=== PATIENT | female | born 1940 | race Caucasian/White ===

== ENCOUNTER → 2016-05-16 | Day surgery (SDC) | payer OTHER ==
[2016-05-08 17:03] VITALS: Ht 152.4 cm; Wt 52.3 kg
[~2016-05-16] VITALS: Ht 152.4 cm; Wt 52.3 kg
[~2016-05-16] MED LIST: 500ML BSS 0.3ML EPI 1:1000PF IRRIG ONE; ACET-1325; ACETAMINOPHEN 325 MG TAB PO PRN; AMVISC PLUS 0.8ML SYRINGE INT OCU ONE; ATROPINE SULFATE 0.1 MG/ML 5ML SYR IV PRN; AcetaZOLAMIDE 250 MG TAB PO SCH; BETAXOLOL HCL 0.25% OP SUSP PER DROP CHARGE OPR SCH; BRIMONIDINE TART 0.2% OP SOLN PER DROP CHARGE ONE; BSS FLUSH ONE; CALC600T9 PO; ENDOCOAT 0.85ML SYRINGE INT OCU ONE; EpHEDrine SULFATE INJ 50 MG/ML AMP IV PRN; EpINEphrine INJ 1MG/ML AMP 1 MG/ML AMP ONE; FENTANYL CITRATE INJ 50 MCG/1 ML 2 ML VIAL IV PRN; FLUMAZENIL 0.1 MG/1 ML 10 ML VIAL IV PRN; HYDROmorphone INJ 2 MG/ML SYR/VIAL IV PRN; LABETALOL HCL IV 5 MG/ML 20ML IV PRN; LACTATED RINGER'S 1000ML 500 ML IV SCH; LIDOCAINE 4% OP SOLN DROP CHARGE ONE; LIDOCAINE 4% OP SOLN DROP CHARGE OPR SCH; LIDOCAINE HCL 1% MPF 2 ML VIAL ONE; MEPERIDINE HCL 25 MG/ML CARP IV PRN; MIDAZOLAM HCL 1 MG/ML 2ML VIAL ONE; MIX: 4ML BSS 1ML EPI 1:1000 PF INSTIL ONE; MOXIFLOXACIN OPH SOLN PER DROP CHARGE ONE; NALOXONE HCL 0.4 MG/1 ML VIAL/CARP IV PRN; OCUCOAT 1 ML SOLN IO ONE; OFLO0.3S OP; ONDANSETRON INJ 2 MG/ML 2 ML VIAL IV PRN; PHENYLEPHRINE 100MCG/ML 5ML SYR IV PRN; POVIDONE-IODINE OP SOLN 30 ML BTL ONE; PRED1SUS3 OPL; PROPARACAINE 0.5% OP SOLN PER DROP CHARGE OPR SCH; TOBRAMYCIN/DEXAMETHASONE OPH OINT PER APPLN CHARGE ONE
--- NOTE | 2016-05-16 07:56 | History & Physical Bridge - [place] ---
H&P Re-Evaluation Bridge Note: I have examined the patient, reviewed the History & Physical and in the interval since the performance of the History & Physical I have noted the following changes of clinical significance: No changes noted
[2016-05-16] MEDS: PHENYLEPHRINE HCL 2.5% OP SOLN PER DROP CHARGE OPR SCH ×2 (08:04→08:12)
[2016-05-16] MEDS: TROPICAMIDE 1% OP SOLN PER DROP CHARGE OPR SCH ×2 (08:05→08:13)
[2016-05-16] MEDS: CYCLOPENTOLATE HCL 1% OP SOLN PER DROP CHARGE OPR SCH ×2 (08:06→08:14)
[2016-05-16] MEDS: MOXIFLOXACIN OPH SOLN PER DROP CHARGE OPR SCH ×2 (08:07→08:20)
--- NOTE | 2016-05-16 09:01 | Discharge Instructions-SurgCtr ---
Discharge Instructions Visit Reason for Visit: Cataract Right Eye Discharge Goals Goal(s): Improve function Activity Recommendations Lifting Limitations: no more than 10 pounds Exercise/Sports Limitations: gradually increase as tolerated May Resume Sexual Activity: when tolerated Shower/Bathe: tomorrow Driving or Machine Use: resume 1 day after discharge Anesthesia . Post Anesthesia Instructions: If you have had General Anesthesia or IV Sedation: * Do not drive today. * Resume driving when surgeon permits. * Do not make important decisions or sign legal documents today. * Call surgeon for: 1. Temperature elevations greater than 101 degrees F. 2. Uncontrollable pain. 3. Excessive bleeding. 4. Persistent nausea and vomiting. 5. Medication intolerance (nausea, vomiting or rash). * For nausea and vomiting use only clear liquids such as: tea, soda, bouillon until nausea subsides, then gradually increase diet as tolerated. * If you have any concerns or questions, call your surgeon's office. If physician is unavailable and it is an emergency, call 911 or go to the nearest emergency room. . Instructions / Follow-Up Instructions / Follow-Up ACTIVITY RECOMMENDATIONS: * Light activities. * Mild irritation and blurred vision are common for the first few days. * You may walk outside, read, watch television. * Redness around the white part of the eye is common. MEDICATIONS: Resume previous medications unless instructed otherwise by your surgeon. * Take white Diamox (Acetazolamide) tablet at 1 pm today. Start all eye drops at 1 pm today: * Eye drops (today and tomorrow): Prednisone - one drop in operative eye every 3 hours while awake Ofloxacin - one drop in operative eye every 3 hours while awake SPECIAL CARE INSTRUCTIONS: * Tape plastic shield over eye to sleep at night. Call your doctor at with any concerns or problems. FOLLOW UP VISIT: Follow-up with Dr Rice at [facility] as scheduled. Medical Emergencies . Who to Call and When: Medical Emergencies: If at any time you feel your situation is an emergency, please call 911 immediately. . Non-Emergent Contact . . "Provider Documentation" section prepared by Fransico Rice.
--- NOTE | 2016-05-16 09:18 | [facility] Post Operative Brief Note ---
Immediate Operative Summary Operative Date May 16, 2016. Pre-Operative Diagnosis Cataract Right Eye Post-Operative Diagnosis Same Procedure(s) Performed Right Cataract Phacoemulsification With Intraocular Lens Implant Surgeon Dr. Rice Carpet Jack Surgeon(s) None Estimated Blood Loss None Findings Nuclear cataract right eye Fluids (cc crystalloids) 300 ml Specimens None Drains none Anesthesia L/S Complication(s) None Disposition Recovery Room / PACU
[2016-05-16 09:27] VITALS: TEMP 36.8
--- NOTE | 2016-05-16 09:29 | OPERATIVE REPORT ---
DATE OF OPERATION: 05/16/2016 PREOPERATIVE DIAGNOSIS: Senile nuclear cataract, right eye. POSTOPERATIVE DIAGNOSIS: Senile nuclear cataract, right eye. PROCEDURE: Phacoemulsification of right cataract with posterior chamber lens implant, type Bausch \T\ Lomb, model MX60, power +24.0 Diopters. ANESTHESIA: Local standby. SURGEON: Dr. Rice. COMPLICATIONS: None. OPERATING TIME: 10 minutes. OPERATION AND FINDINGS: PROCEDURE: The right pupil was dilated. The anesthetic was administered using a topical technique. The right eye was prepped and draped. A speculum was placed. A paracentesis was placed. The chamber was filled with Amvisc Plus and EndoCoat. Epinephrine solution was used. A clear corneal incision was formed. A capsulorrhexis was performed. The nucleus was hydrodissected. The lens was removed with phacoemulsification. Time was 3.08 seconds. The aspiration unit was used to remove the cortex. The capsule was filled with Amvisc Plus. The lens implant was folded and placed into the capsule. The incision was hydrated. The Amvisc was aspirated. The wound was secure. The chamber was deep. The pupil was round. Brimonidine and TobraDex ointment and Vigamox solution were placed. The speculum was removed. DISPOSITION: The patient was returned to the recovery room in stable condition. I attest to the content of the Intraoperative Record and any orders documented therein. Any exceptions are noted below. I attest to the content of the Intraoperative Record and any orders documented therein. Any exceptions are noted below. IMELDA
--- NOTE | 2016-05-16 09:37 | Anesthesia Progress Nt - [facility] ---
Anesthesia Post Op Note Date & Time May 16, 2016 at 09:36 Vital Signs Pain Intensity: 3 Vital Signs Past 12 Hours Date Time Temp Pulse Resp B/P Pulse Ox O2 Delivery O2 Flow Rate FiO2 05/16/16 09:27 36.8 69 18 131/84 98 Room Air 05/16/16 07:58 36.6 86 16 145/83 95 Room Air Notes Mental Status: alert / awake / arousable, participated in evaluation Pt Amnestic to Procedure: Yes Nausea / Vomiting: adequately controlled Pain: adequately controlled Airway Patency, RR, SpO2: stable & adequate BP & HR: stable & adequate Hydration State: stable & adequate Anesthetic Complications: no major complications apparent
[2016-05-16 09:44] VITALS: BP 139/73; PULSE 87; O2SAT 96
== END | disposition home or self-care (01) ==
LOC: X.SURG 07:34
PROVIDERS: ATTEND Specialist
DX: H25.11 Age-related nuclear cataract, right eye (principal)

== ENCOUNTER 2017-05-17 08:40 | Inpatient (IN) | payer OTHER ==
[2017-05-08 12:59] VITALS: BMI 24.0
--- NOTE | 2017-05-08 13:23 | PAT Medication Instructions ---
Service Date May 08, 2017. Current Home Medication List Calcium Carbonate-Vitamin D (Calcium + D), 1 TAB PO BID Diclofenac (Voltaren), 75 MG PO BID Fish Oil ([place]-3), 1 CAP PO QPM Nutritional Supplements (Boost), 1 DOSE PO QDL Medication Instructions For Your Scheduled Surgery - Check with surgeon for instructions: Diclofenac (Voltaren), 75 MG PO BID - Hold the following medications starting 05/08/16: Fish Oil ([place]-3), 1 CAP PO QPM - Hold the following medications the morning of surgery: Nutritional Supplements (Boost), 1 DOSE PO QDL Calcium Carbonate-Vitamin D (Calcium + D), 1 TAB PO BID - Take the following medications as scheduled the night before surgery: Calcium Carbonate-Vitamin D (Calcium + D), 1 TAB PO BID If you have any questions please call us at [phone] or [phone] or [phone]
--- NOTE | 2017-05-08 14:15 | DIAGNOSTIC IMAGING REPORT ---
CHEST 2 VIEWS ROUTINE CLINICAL HISTORY: PAT preoperative evaluation COMPARISON STUDY: 11/24/2014 FINDINGS: Mild emphysematous change. Slight chronic interstitial prominence. Several small scattered calcified granulomas. No focal infiltrate. IMPRESSION: Chronic change. No acute process. The above report was generated using voice recognition software. It may contain grammatical, syntax or spelling errors. Electronically signed by: Ricky Ang M.D. 05/08/2017 2:14 PM Dictated Date/Time: 05/08/2017 2:13 PM
[2017-05-08 15:29] LABS: BASO % 0.5 %; BASO ABS # 0.04 K/uL (0-0.2); EOS % 1.9 %; EOS ABS # 0.14 K/uL (0-0.5); HEMATOCRIT 39.2 % (37-47); HEMOGLOBIN 12.6 g/dL (12.0-16.0); IG# 0.01 K/uL (0.00-0.02); LYMPH % 32.4 %; LYMPH ABS # 2.44 K/uL (1.2-3.4); MEAN CELL VOLUME 96.8 fL (80-100); MEAN CORPUSCULAR HEMOGLOBIN 31.1 pg (25-34); MEAN CORPUSCULAR HGB CONC 32.1 g/dl (32-36); MEAN PLATELET VOLUME 9.4 fL (7.4-10.4); MONO % 7.3 %; MONO ABS # 0.55 K/uL (0.11-0.59); NEUT % 57.8 %; NEUT ABS # 4.35 K/uL (1.4-6.5); PLATELET COUNT 326 K/uL (130-400); RED CELL DISTRIBUTION WIDTH CV 13.8 % (11.5-14.5); RED CELL DISTRIBUTION WIDTH SD 49.2 fL (36.4-46.3); WHITE BLOOD COUNT 7.53 K/uL (4.8-10.8)
[2017-05-08 15:40] LABS: CALCIUM 9.1 mg/dl (8.5-10.1); CREATININE 0.8 mg/dl (0.60-1.20); POTASSIUM 3.8 mmol/L (3.5-5.1)
[2017-05-08 15:42] LABS: PTT PATIENT 25.7 SECONDS (21.0-31.0)
--- NOTE | 2017-05-16 08:09 | HISTORY & PHYSICAL EXAMINATION ---
DATE OF ADMISSION: 05/17/2017 CHIEF COMPLAINT: Rotator cuff arthropathy of the left shoulder. HISTORY OF PRESENT ILLNESS: Willow is a pleasant 76-year-old female who has been having a several month history of increasing left shoulder pain. X-rays and clinical examination have been diagnostic for rotator cuff arthropathy of the left shoulder. After failing extensive conservative treatment, she elected to proceed with a reverse left total shoulder arthroplasty. PAST MEDICAL HISTORY: Significant for osteoarthritis. PAST SURGICAL HISTORY: Significant for rotator cuff repair of the right shoulder in 2016 and a breast lumpectomy. ALLERGIES: None. MEDICATIONS: Include fish oil, calcium, and diclofenac as needed for pain. FAMILY HISTORY: Denies. SOCIAL HISTORY: She is a former smoker. She has about 1 drink per week. She denies any drug use. Her recently . REVIEW OF SYSTEMS: She complains of left shoulder pain. All other pertinent review of systems is negative. PHYSICAL EXAMINATION: GENERAL: She is awake, alert and oriented x3. She is in no apparent distress. She is very pleasant. HEENT: Pupils equal, round and reactive to light. Extraocular motions intact. Oral mucosa is pink and moist. HEART: Regular rate per radial pulse. LUNGS: Dulce Maria symmetrically bilaterally with no audible breath sounds. ABDOMEN: Soft, nontender, and nondistended. MUSCULOSKELETAL: On physical examination of the left shoulder, actively she has full range of motion. She has 3/5 muscle strength with full can testing and 3/5 muscle strength with external rotation. Negative belly press test. She has a lot of pain with range of motion of her shoulder and severe pain in the subacromial space. IMAGING DATA: X-rays of the left shoulder do show evidence of rotator cuff arthropathy with superior migration of the humeral head on the glenoid and joint space narrowing. IMPRESSION: Rotator cuff arthropathy of the left shoulder. PLAN: We will proceed with a reverse left total shoulder arthroplasty. Postoperatively, she will be placed in an arm sling and kept overnight for postoperative medical management.
[~2017-05-17] VITALS: Ht 149.9 cm; Wt 54.6 kg
[2017-05-17] VITALS (8 sets, daily range): BP systolic 113–172; BP diastolic 64–81; PULSE 67–100; TEMP 36.5–36.9; O2SAT 91–100; Ht 149.9 cm; Wt 54.6 kg
[~2017-05-17 08:40] MED LIST changes: -500ML BSS 0.3ML EPI 1:1000PF IRRIG ONE; -ACET-1325; -ACETAMINOPHEN 325 MG TAB PO PRN; +ACETAMINOPHEN 500 MG TAB PO SCH; -AMVISC PLUS 0.8ML SYRINGE INT OCU ONE; -ATROPINE SULFATE 0.1 MG/ML 5ML SYR IV PRN; -AcetaZOLAMIDE 250 MG TAB PO SCH; -BETAXOLOL HCL 0.25% OP SUSP PER DROP CHARGE OPR SCH; -BRIMONIDINE TART 0.2% OP SOLN PER DROP CHARGE ONE; -BSS FLUSH ONE; +CEFAZOLIN 2000MG IV PUSH 10 ML IV SCH; +DEXAMETHASONE SOD INJ 4 MG/ML VIAL ONE; +DICL-201 PO; -ENDOCOAT 0.85ML SYRINGE INT OCU ONE; -EpHEDrine SULFATE INJ 50 MG/ML AMP IV PRN; -EpINEphrine INJ 1MG/ML AMP 1 MG/ML AMP ONE; +FAMOTIDINE 20 MG TAB PO SCH; -FENTANYL CITRATE INJ 50 MCG/1 ML 2 ML VIAL IV PRN; -FLUMAZENIL 0.1 MG/1 ML 10 ML VIAL IV PRN; +GABAPENTIN 300 MG CAP PO SCH; -HYDROmorphone INJ 2 MG/ML SYR/VIAL IV PRN; -LABETALOL HCL IV 5 MG/ML 20ML IV PRN; +LACTATED RINGER'S 1000ML 1,000 ML IV SCH; -LACTATED RINGER'S 1000ML 500 ML IV SCH; +LACTATED RINGER'S 1000ML IV SCH; -LIDOCAINE 4% OP SOLN DROP CHARGE ONE; -LIDOCAINE 4% OP SOLN DROP CHARGE OPR SCH; -LIDOCAINE HCL 1% MPF 2 ML VIAL ONE; -MEPERIDINE HCL 25 MG/ML CARP IV PRN; -MIDAZOLAM HCL 1 MG/ML 2ML VIAL ONE; -MIX: 4ML BSS 1ML EPI 1:1000 PF INSTIL ONE; -MOXIFLOXACIN OPH SOLN PER DROP CHARGE ONE; -NALOXONE HCL 0.4 MG/1 ML VIAL/CARP IV PRN; +NUTR-7 PO; -OCUCOAT 1 ML SOLN IO ONE; -OFLO0.3S OP; +OMEG10007 PO; -ONDANSETRON INJ 2 MG/ML 2 ML VIAL IV PRN; -PHENYLEPHRINE 100MCG/ML 5ML SYR IV PRN; -POVIDONE-IODINE OP SOLN 30 ML BTL ONE; -PRED1SUS3 OPL; -PROPARACAINE 0.5% OP SOLN PER DROP CHARGE OPR SCH; +ROPIVACAINE 0.5% 5 MG/ML 30 ML VIAL ONE; +ROPIVACAINE 5MG/ML 30 ML 150 MG, BUPIVACAINE 0.5% MPF INJ 30 ML, EpINEphrine HCL INJ 0.... INFIL SCH; -TOBRAMYCIN/DEXAMETHASONE OPH OINT PER APPLN CHARGE ONE
[2017-05-17] MEDS ORDERED: DEXAMETHASONE SOD INJ 4 MG/ML VIAL ONE (08:58)
[2017-05-17] MEDS ORDERED: NEOSTIGMINE METHYLSULFATE 5 MG/5 ML SYR ONE (08:58)
[2017-05-17] MEDS ORDERED: ONDANSETRON INJ 2 MG/ML 2 ML VIAL ONE (08:58)
[2017-05-17] MEDS ORDERED: PROPOFOL IV EMULSION 10 MG/ML 20 ML VIAL IV ONE (08:58)
[2017-05-17] MEDS ORDERED: GLYCOPYRROLATE INJ 0.2 MG/ML VIAL ONE (08:58)
[2017-05-17] MEDS ORDERED: LIDOCAINE HCL 2% 2 ML VIAL (20MG/ML) ONE (08:58)
[2017-05-17] MEDS ORDERED: MIDAZOLAM HCL 1 MG/ML 2ML VIAL ONE (08:59)
[2017-05-17] MEDS ORDERED: FENTANYL CITRATE INJ 50 MCG/1 ML 2 ML VIAL ONE (08:59)
--- NOTE | 2017-05-17 09:48 | Anesthesiology Progress Note ---
Anesthesia Post Op Note Date & Time May 17, 2017 at 09:47 Vital Signs Pain Intensity: 7 Vital Signs Past 12 Hours Date Time Temp Pulse Resp B/P (MAP) Pulse Ox O2 Delivery O2 Flow Rate FiO2 05/17/17 09:10 36.6 76 18 158/81 95 Room Air Notes Mental Status: alert / awake / arousable, participated in evaluation Pt Amnestic to Procedure: Yes Nausea / Vomiting: adequately controlled Pain: adequately controlled Airway Patency, RR, SpO2: stable & adequate BP & HR: stable & adequate Hydration State: stable & adequate Anesthetic Complications: no major complications apparent This note was entered earlier in error. At this time (0926), pt is awake in PACU satisfactory condition for discharge.
[2017-05-17] MEDS ORDERED: ORTHO JOINT ANESTHETIC ONE (09:54)
[2017-05-17] MEDS ORDERED: BACITRACIN 50000 UNIT VIAL ONE (09:54)
[2017-05-17] MEDS ORDERED: EpHEDrine SULFATE INJ 50 MG/ML AMP IV PRN (10:00)
[2017-05-17] MEDS ORDERED: ATROPINE SULFATE 0.1 MG/ML 5ML SYR IV PRN (10:00)
[2017-05-17] MEDS ORDERED: ONDANSETRON INJ 2 MG/ML 2 ML VIAL IV PRN ×2 (10:00→12:15)
[2017-05-17] MEDS ORDERED: HYDROmorphone INJ 1 MG/ML SYR IV PRN (10:00)
[2017-05-17] MEDS ORDERED: LABETALOL HCL IV 5 MG/ML 20ML IV PRN (10:00)
[2017-05-17] MEDS ORDERED: FENTANYL CITRATE INJ 50 MCG/1 ML 2 ML VIAL IV PRN (10:00)
[2017-05-17] MEDS ORDERED: MEPERIDINE HCL 25 MG/ML CARP IV PRN (10:00)
[2017-05-17] MEDS: TRANEXAMIC ACID INJ 1,000 MG in SYRINGE 0 ML IV SCH ×2 (10:03→15:13)
[2017-05-17] MEDS ORDERED: ROCURONIUM BROMIDE 10 MG/ML 5 ML VIAL IV ONE (11:05)
[2017-05-17] MEDS ORDERED: PHENYLEPHRINE HCL INJ 10 MG/ML VIAL ONE (11:53)
--- NOTE | 2017-05-17 12:04 | [facility] Post Operative Brief Note ---
Immediate Operative Summary Operative Date May 17, 2017. Pre-Operative Diagnosis Rotator Cuff Arthropathy of the Left Shoulder Post-Operative Diagnosis Rotator Cuff Arthropathy of the Left Shoulder Procedure(s) Performed Reverse Left Total Shoulder Arthroplasty Surgeon Dr. Wil Drummond [facility] Surgeon(s) Delvis Lu PA-C Estimated Blood Loss 200ml Findings Consistent with Post-Op Diagnosis Specimens A.) Left Humeral Head Anesthesia Type General Regional Complication(s) none Disposition Disposition: Recovery Room / PACU
[2017-05-17] MEDS ORDERED: NALOXONE HCL 0.4 MG/1 ML VIAL/CARP IV PRN (12:15)
[2017-05-17] MEDS ORDERED: METOCLOPRAMIDE HCL INJ 5 MG/ML 2 ML VIAL IV PRN (12:15)
[2017-05-17] MEDS ORDERED: MAGNESIUM HYDROXIDE SUSP 30 ML UDC PO PRN (12:15)
[2017-05-17] MEDS ORDERED: BISACODYL 10 MG SUPP PR PRN (12:15)
[2017-05-17] MEDS ORDERED: SOD PHOSPHATE/SOD BIPHOSPHATE ENEMA 132 ML BTL PR PRN (12:15)
[2017-05-17] MEDS ORDERED: MoRPHine SULFATE 2 MG/ML CARP IV PRN (12:15)
--- NOTE | 2017-05-17 12:45 | OPERATIVE REPORT ---
DATE OF OPERATION: 05/17/2017 PREOPERATIVE DIAGNOSIS: Rotator cuff arthropathy of the left shoulder. POSTOPERATIVE DIAGNOSIS: Same. PROCEDURE: Reverse left total shoulder arthroplasty. SURGEON: Dr. Wil Drummond. HOUSEKEEPER HOME: Delvis Lu PA-C, whose assistance was necessary for retraction and closure. ANESTHESIA: General with a left interscalene nerve block. COMPLICATIONS: None. CONDITION: Stable to PACU. INDICATIONS: Willow is a pleasant 76-year-old female who presented to my office with chronic pain and weakness of her left shoulder. X-rays and clinical examination were diagnostic for cuff arthropathy of the left shoulder. After failing conservative treatment, she elected to undergo a reverse left total shoulder arthroplasty. DESCRIPTION OF PROCEDURE: On 05/17/2017, she arrived at [facility] for the above procedure. She was seen in the preoperative holding area and the operative extremity was identified and signed. She was given a preoperative antibiotic and a left interscalene nerve block. She was taken back to the operating room, laid on the table in supine position and put under general anesthesia. She was then put into the beachchair position. The left shoulder was prepped and draped in sterile fashion. Time-out was done and the patient's operative extremity was properly identified. A deltopectoral approach was used. Dissection was taken down through the deltopectoral interval and the anterior shoulder was exposed. The long head of the biceps tendon was tenodesed to the upper border of the pec major. The subscapularis was tenotomized off the lesser tuberosity with a centimeter of cuff tissue remaining. The proximal humerus was then exposed. There was a tear of the entire supraspinatus and part of the infraspinatus. A canal finding reamer was sent down the center of the humeral canal. Sequential reaming was done up to a size 11 reamer. Off the final reamer, a proximal humeral resection guide was placed and the proximal humerus was resected at 135 degrees of inclination and 20 degrees of retroversion. The head was removed and the glenoid was exposed. Time was spent doing a complete circumferential capsular and labral release. A guide was placed in the center of the glenoid and a guide pin was placed at 10 degrees of inclination. A 25-mm mini base plate was then drilled. The final 25-mm mini baseplate was impacted into place. A long size 50 central screw was placed. I was able to get a good bite. Superior, inferior and anterior locking screws were then placed. A 36-mm eccentric glenosphere was then impacted into place. The proximal humerus was then exposed. Sequential broaching up to a size 11 broach was done. Off that broach, a standard humeral tray was trialed. The shoulder was reduced, brought through a full range of motion and felt to be stable. The trials were then removed. A final size 11 mini stem was then impacted into place. A standard humeral bearing was snapped onto the humeral tray and the ring lock mechanism was engaged. The humeral tray was impacted on the humeral stem and the shoulder was reduced. It was brought through a full range of motion and felt to be stable. The subscapularis was then tenodesed back to the lesser tuberosity with transosseous FiberWire sutures and [id number] sutures. The surrounding soft tissues were injected with 100 mL of an orthopedic pain control cocktail. The wound was then irrigated with 3 liters of normal saline solution with bacitracin. A drain was placed. The axillary nerve was palpated and intact. The skin was then closed with 2-0 Vicryl, 3-0 V-Loc suture and baudilio. She was then placed in a soft dressing and a regular arm sling. She was then extubated, transferred to a litter and taken to the postanesthesia care unit in stable condition. She tolerated the procedure well. IMPLANTS USED: I used a [employer] comprehensive reverse shoulder arthroplasty system with a size 11 mini stem and a size 25-mm mini baseplate with a 36-mm standard eccentric glenosphere and a standard humeral tray and bearing. No cement was used during the case. I attest to the content of the Intraoperative Record and any orders documented therein. Any exception s are noted below.
[2017-05-17] MEDS ORDERED: PNEUMOCOCCAL POLYSACCHARIDES 25 MCG/0.5 ML VIAL/SYR IM. ONE (15:15)
[2017-05-17] MEDS ORDERED: PNEUMOCOCCAL ADMINISTRATION CHARGE ONE (15:15)
--- NOTE | 2017-05-17 16:15 | DIAGNOSTIC IMAGING REPORT ---
L SHOULDER MIN 2 VIEWS ROUTINE HISTORY: 76 years-old Female Post shoulder surgery status post left shoulder arthroplasty. Degenerative joint disease. COMPARISON: Left shoulder radiographs 03/05/2017 TECHNIQUE: 2 views of the left shoulder FINDINGS: Postoperative changes compatible with reverse left shoulder total joint arthroplasty noted. Alignment is satisfactory. No periprosthetic fracture or retained foreign body identified. Chondrocalcinosis about the left shoulder redemonstrated. Moderate degenerative changes of the left AC joint with mild bone demineralization. Surgical drain is in place along with expected postsurgical swelling and deep tissue air. Surgical clips are again seen projecting along the left axillary region. IMPRESSION: Reverse left shoulder total joint arthroplasty with satisfactory alignment. The above report was generated using voice recognition software. It may contain grammatical, syntax or spelling errors. Electronically signed by: Robinson Jamil M.D. 05/17/2017 4:13 PM Dictated Date/Time: 05/17/2017 4:12 PM
[2017-05-17] MEDS: KETOROLAC TROMETHAMINE 15 MG/ML VIAL IV. SCH ×2 (16:32→22:08)
[2017-05-17] MEDS: POTASSIUM CHLORIDE INJ 10 MEQ in SODIUM CHLORIDE 0.9% 1000ML 1,000 ML IV SCH (16:34)
[2017-05-17] MEDS: ACETAMINOPHEN IV 1,000 MG in EMPTY BAG 0 ML IV SCH ×2 (16:34→23:20)
[2017-05-17] MEDS: CEFAZOLIN IV 1,000 MG in SYRINGE 0 ML IV SCH (18:26)
[2017-05-17] MEDS ORDERED: SENNA 8.6 MG TAB PO SCH (21:00)
[2017-05-17] MEDS: DOCUSATE SODIUM 100 MG CAP PO SCH (22:08)
[2017-05-18] MEDS: POTASSIUM CHLORIDE INJ 10 MEQ in SODIUM CHLORIDE 0.9% 1000ML 1,000 ML IV SCH (02:09)
[2017-05-18] MEDS: CEFAZOLIN IV 1,000 MG in SYRINGE 0 ML IV SCH (02:09)
[2017-05-18] MEDS: KETOROLAC TROMETHAMINE 15 MG/ML VIAL IV. SCH ×2 (03:43→10:31)
[2017-05-18 04:00] VITALS: BP 119/75; PULSE 65; TEMP 36.8; O2SAT 95
[2017-05-18] MEDS: OXYCODONE HCL IR 5 MG TAB (IMMEDIATE RELEASE) PO PRN ×3 (04:21→12:12)
[2017-05-18 06:12] LABS: HEMATOCRIT 32.8 % (37-47); HEMOGLOBIN 10.7 g/dL (12.0-16.0); MEAN CELL VOLUME 95.6 fL (80-100); MEAN CORPUSCULAR HEMOGLOBIN 31.2 pg (25-34); MEAN CORPUSCULAR HGB CONC 32.6 g/dl (32-36); MEAN PLATELET VOLUME 9.3 fL (7.4-10.4); PLATELET COUNT 273 K/uL (130-400); RED CELL DISTRIBUTION WIDTH CV 13.5 % (11.5-14.5); RED CELL DISTRIBUTION WIDTH SD 47.1 fL (36.4-46.3); WHITE BLOOD COUNT 11.15 K/uL (4.8-10.8)
[2017-05-18 06:44] LABS: CALCIUM 8.3 mg/dl (8.5-10.1); CREATININE 0.88 mg/dl (0.60-1.20); POTASSIUM 4.2 mmol/L (3.5-5.1)
[2017-05-18 07:40] VITALS: BP 124/68; PULSE 68; TEMP 36.7; O2SAT 94
[2017-05-18] MEDS: ACETAMINOPHEN IV 1,000 MG in EMPTY BAG 0 ML IV SCH (08:13)
[2017-05-18] MEDS ORDERED: RXC5 PO (08:42)
--- NOTE | 2017-05-18 08:43 | Discharge Instructions ---
Discharge Instructions Date of Service May 18, 2017. Admission Reason for Admission: Left Shoulder Full Thickness Rotator Cuff Tear Discharge Discharge Diagnosis / Problem: Left Reverse Total Shoulder Discharge Goals Goal(s): Decrease discomfort, Improve function Activity Recommendations Activity Limitations: as noted below . Instructions / Follow-Up Instructions / Follow-Up Activity and Therapy Recommendations: * Wear your sling for 3 weeks, unless otherwise instructed. You may remove your sling to shower and to dress, but otherwise, you should be in your sling at all times, including while sleeping * The shoulder replacement is very stable and you can use your hand while in the sling * Physical Therapy should start about 3-5 days from your day of surgery. Therapy will last about 8-12 weeks * You were shown a series of exercises in the hospital. Do these exercises daily including the exercises you were shown in physical therapy. Medications: * Narcotic You will likely be sent home from the hospital with a prescription for the narcotic pain medication that worked best throughout your stay. * Other medications may be prescribed for specific circumstances. If you have any questions, please call the office at . * Resume previous home medications unless otherwise instructed Showering: You may shower 5 days from the day of surgery. Let the soapy shower water run over the baudilio. Do not scrub or soak the incision. Things To Watch For: * Drainage from the incision site that occurs more than one week after your surgery. * Increased redness at the incision site. * Fever above 102 degrees Fahrenheit. * Unusual chest pain or shortness of breath. * Call [facility] at with any of the above problems Follow-Up Visit: Follow-up with Dr. Drummond 2-3 weeks after your day of surgery. An appointment was probably scheduled when you signed-up for surgery in the office. If you have any questions call Office Instructions: More detailed instructions as well as Frequently Asked Questions were provided in a folder by our office when you signed-up for surgery. Please review these instructions when you get home. If you have any further questions or concerns, please feel free to call the office at [phone] Current Hospital Diet Patient's current hospital diet: Regular Diet Discharge Diet Recommended Diet: Regular Diet Procedures Procedures Performed: Reverse Left Total Shoulder Arthroplasty Pending Studies Studies pending at discharge: no Medical Emergencies . Who to Call and When: Medical Emergencies: If at any time you feel your situation is an emergency, please call 911 immediately. . Non-Emergent Contact Non-Emergency issues call your: Surgeon Call Non-Emergent contact if: wound has increased drainage, wound has increased redness . "Provider Documentation" section prepared by Wil Drummond. . VTE Core Measure Inpt VTE Proph given/why not?: Treatment not indicated
[2017-05-18] MEDS ORDERED: MULTIVITAMIN TAB PO SCH (09:00)
--- NOTE | 2017-05-18 09:02 | PROGRESS NOTE ---
DATE: 05/18/2017 CHIEF COMPLAINT: Status post left reverse shoulder arthroplasty postop day #1. PROGRESS: Willow was seen and examined at bedside today. Overall, she is doing very well. She has a little soreness in her shoulder, but it is not too bad. She was able to get some sleep last night and has no complaints. PHYSICAL EXAMINATION: LEFT ARM: Her radial, median and ulnar nerves were checked and intact. Her hand is still a little bit numb as the block is wearing off. She is wearing her sling as instructed. The dressing is clean and dry and the drain is to suction. LABORATORIES: She has an H&H today of 10.7 and 32.8. Her glucose is a little high at 135. Her vital signs were all stable on room air. She is voiding on her own and the drain only put out 25 mL. IMAGING STUDIES: X-rays postoperatively of the left shoulder show the prosthesis to be in anatomical alignment without any evidence of fracture, dislocation or loosening. IMPRESSION: Status post reverse left shoulder arthroplasty postop day #1. PLAN: At this point, she is doing well and happy with her progress. She will be seen by physical therapy today for hand, wrist, elbow and pendulum exercises. The nursing staff can change the dressing and pull the drain and then she can be discharged to home later this morning.
--- NOTE | 2017-05-18 09:04 | DISCHARGE SUMMARY ---
DISCHARGE DIAGNOSIS: Rotator cuff arthropathy of the left shoulder. PROCEDURE: Left reverse shoulder arthroplasty on 05/17/[address] Wil Drummond. DISCHARGE INSTRUCTIONS: 1. Oxycodone 5-10 mg every 4 hours as needed for pain. 2. Continue home supplementations. 3. Left arm sling for 3 weeks. 4. Follow up with Dr. Drummond in 2 weeks. 5. Call the office of Dr. Drummond with any questions or concerns. HOSPITAL COURSE: Willow is a pleasant 76-year-old female who presented to my office with complaints of chronic pain and weakness of her left shoulder. X-rays and clinical examination were diagnostic for rotator cuff arthropathy of the left shoulder. After failing conservative treatment, she elected to undergo a reverse left shoulder arthroplasty. On 05/17/2016, she arrived at [facility] and underwent a reverse shoulder arthroplasty without complications. She had a general anesthetic and a left interscalene nerve block. Postoperatively, she was placed in a sling and discharged to general orthopedic floor. Her hospital course was uneventful. On postop day #1, her H&H was stable at 10.7 and 32.8. She was able to participate well with physical therapy and her pain was well controlled. The nursing staff changed the dressing, pulled the drain and subsequently discharged her to home with the above instructions.
[2017-05-18] MEDS: DOCUSATE SODIUM 100 MG CAP PO SCH (09:05)
[2017-05-18 09:34] VITALS: BP 124/68; PULSE 68; TEMP 36.7; O2SAT 94
[2017-05-18] MEDS ORDERED: ACETAMINOPHEN 500 MG TAB PO SCH (22:00)
== END 2017-05-18 12:44 | DRG 483 ==
LOC: C.ACU 08:40 → C.3E 09:00 → ENRESERV 14:37
PROVIDERS: ADMIT Orthopaedic Surgery; ATTEND Orthopaedic Surgery
PROC: 0RRK00Z Replacement of Left Shoulder Joint with Reverse Ball and Socket Synthetic Substitute, Open Approach (ICD-10-PCS; principal; 2017-05-17 11:10)
DX: M75.102 Unspecified rotator cuff tear or rupture of left shoulder, not specified as traumatic (principal); Z87.891 Personal history of nicotine dependence